=== PATIENT | female | born 1970 | race Caucasian/White ===

== ENCOUNTER 2022-05-12 09:42 | Outpatient (CLI) | payer BC, SELFPAY ==
[2022-05-12 14:01] LABS: Chloride* 103 mmol/L (96-114); Sodium* 139 mmol/L (135-149)
[2022-05-12 14:04] LABS: Blood Urea Nitrogen* 18 mg/dL (7-30); Carbon Dioxide* 25 mmol/L (20-32); Cholesterol* 227 mg/dL (90-199); Creatinine* 0.7 mg/dL (0.5-1.5); Estimated Glomerular Filt Rate 103 ml/min; Glucose* 211 mg/dL (60-115)
[2022-05-12 14:05] LABS: Calcium* 9.5 mg/dL (8.4-10.6); HDL Cholesterol* 40 mg/dL (>=50); LDL Cholesterol Calculated 129 mg/dL (<100); Triglycerides* 288 mg/dL (40-149)
--- OUTSIDE RECORDS SUMMARY | 2022-05-19 21:22 | XMS_ITS | Encounter Summary ---
:1970 Author Organization [facility] Address [address] [place] [address] Care Team Providers Name Role Phone No Ref-Primary, Physician Primary Care Provider [phone] Reason for Visit Auth/Cert Specialty Diagnoses / Procedures Referred By Contact Refer red To Contact Med Surg Diagnoses Submandibular space infection Left submandibular abcess Submandibular space infection Uu Obs Procedures COMBINED INCISION AND DRAINAGE ORAL [address] [place] [address] Phone: Fax: Referral ID Status Reason Start Date Expiration Date Visits Requ ested Visits Authorized 09/01/2017 09/01/2018 Encounter Details Date Type Department Care Team Description 08/31/2017 Anesthesia Event [facility] Laura Henderson MD [address] [facility] [address] [place] [address] PeriOp Services Yamilka Moore, LAWANDA CABANA ATTENDANT [address] [place] [address] [address] [place] [address] Anesthesia Record Procedure Summary Procedure Name Responsible Anesthesia Start Anesthesia Stop Anesthesiologist Time Time INCISION AND DRAINAGE Laura Henderson MD 08/31/171950 OF LEFT ORAL SUBMANDIBULAR ABCESS, Dental extraction x 1. (N/A Mouth) Events Date Time Event Comment 08/31/20171950 An Start 1955 An Start Data 1956 Present 1958 An Induction 1958 AN Start Iso Billing 2013 An Intubation 2016 AN Throat Pack In 2017 Anesthesia Complete 2018 MD Present 2029 AN INCISION 2044 AN Throat Pack Out 2046 AN End Iso Billing 2048 Present 2053 AN Extubation 2055 an stop data 2105 An Stop Electronically s igned by Jamee Hunt on August 31 9:06 PM Name Total midazolam 1mg/mL 2 mg fentaNYL (SUBLIMAZE) injection 150 mcg propofol (DIPRIVAN) injection 10 mg/mL vial 150 mg rocuronium 10mg/mL 40 mg dexamethasone 4mg/mL 10 mg ondansetron 2mg/mL 4 mg phenylephrine (LONI-SYNEPHRINE) injection 1 mg 100 mcg sugammadex (BRIDION) 200mg/2ml 150 mg polyethylene glycol - propylene glycol (SYSTANE) ophth almic solution 2 drop PRE OP antibiotics NOT needed for this surgical proced ure. 1 each LR 600 mL Agents Name NO HELIOX O2 N2O Air Exp Sevoflurane Exp Isoflurane Exp Desflurane Exp N2O Ins Sevoflurane Ins Isoflurane Ins Desflurane O2 Auxiliary Blood No blood administrations on file. Lines, Drains, and Airways Type Details Placement Removal Peripheral IV 08/31/17; 1600; 20 G; 08/31/17 1600 by Right; Upper forearm; Julienne Bridges RN Chlorhexidine; None Open Drain 08/31/17; 2042; Left; 08/31/172042 by Neck; 0.3 Spanish; Latex Shant El free Penrose, left RN submandibular Incision/Surgical Site 08/31/17211308/31/172113 by Gayla Phelps RN Retired Non-Surgical Easy; Intravenous; 08/31/172034 by 2055 by Airway Difficult (Initial Jamee Hunt attempt w/ CMAC 3 unable LAWANDA Foote CRNA to lift epiglottis at all to visualize vocal cords, placed CMAC D blade with grade 3 view but unable to guide bougie anterior enough, placed fiberoptic bronchoscope in conjunction with Dblade visualization successfully); 7; oral; right side of mouth; 22 cm; Equal, clear and bilateral; Fiberoptic Bronchoscope; Anesthesiologist; Laura Henderson Incision/Surgical Site 08/31/17; 2125; Left; 08/31/172125 by 2201 by Neck; 08/31/172201 Shant El, Gayla Phelps, MIGNON RN documented in this encounter Social History Tobacco Use Types Packs/Day Years Used Date Current Every Day Smoker Alcohol Use Standard Drinks/Week Comments No 0 (1 standard drink = 0.6 oz pure alcoho l) Sex Assigned at Date Recorded Not on file documented as of this encounter OR Notes Anesthesia Postprocedure Evaluation - Neftaly Cardenas MD - 08/31/2017 9:47 PM CST Patient: Rossana Goldman Procedure(s): INCISION AND DRAINAGE OF LEFT ORAL SUBMANDIBULAR ABCESS, Dental extraction x 1. - Wound Class: II-Clean Contaminated Diagnosis:Left submandibular abcess Diagnosis Additional Information: No value filed. Anesthesia Type: General, ETT Note: Anesthesia Post Evaluation Patient location during evaluation: PACU Patient participation: Able to fully participate in evaluation Level of consciousness: awake and alert Pain management: adequate Airway patency: patent Cardiovascular status: acceptable Respiratory status: acceptable Hydration status: acceptable PONV: none Last vitals: Vitals: 08/31/17 2100 08/31/17 2115 08/31/17 2130 BP: (!) 171/96 (!) 146/95 (!) 163/100 Pulse: Resp: 16 Temp: 36.8 ??C (98.3 ??F) SpO2: 98% 99% 94% Electronically Signed By: Neftaly Cardenas MD August 31, 2017 9:47 PM DYEING VAT TENDER Anesthesia Preprocedure Evaluation - Laura Henderson MD - 08/31/2017 7:46 PM CST Anesthesia Evaluation . Pt has had prior anesthetic. Type: General History of anesthetic complications reports being told during one surgery that they had trouble putting the breathing tube in, woke up with gum laceration ROS/MED HX ENT/Pulmonary: Comment: Submandibular abscess Neurologic: - neg neurologic ROS (-) seizures and CVA Cardiovascular: (+) hypertension----. : . . . :. . METS/Exercise Tolerance: Hematologic: Musculoskeletal: GI/Hepatic: - neg GI/hepatic ROS (-) liver disease Renal/Genitourinary: Comment: Previous history of kidney stones (-) renal disease Endo: Psychiatric: Infectious Disease: Malignancy: Other: Physical Exam Normal systems: dental Airway Mallampati: IV Neck ROM: full Comment: Large red submandibular swelling, poor mouth opening due to pain Dental Cardiovascular Rhythm and rate: regular and normal Pulmonary breath sounds clear to auscultation Anesthesia Plan History & Physical Review History and physical reviewed and following examination; no interval change. ASA Status: 2 . NPO Status: > 8 hours Plan for General and ETT with Intravenous induction. Maintenance will be Balanced. PONV prophylaxis: Ondansetron (or other 5HT-3) and Dexamethasone or Solumedrol Additional equipment: Videolaryngoscope and Difficult Airway Cart Postoperative Care Postoperative pain management: IV analgesics. Consents Anesthetic plan, risks, benefits and alternatives discussed with: Patient.. ANESTHESIA PREOP EVALUATION HPI: Rossana Goldman is a 47 year old female who presents for Procedure(s): INCiSION AND DRAINAGE OF LEFT ORAL SUBMANDIBULAR ABCESS - Wound Class: II-Clean Contaminated PMHx/PSHx/ROS: Past Medical History: Diagnosis Date ??? Hypertension History reviewed. No pertinent surgical history. Past Anes Hx: No personal or family h/o anesthesia problems Soc Hx: Social History Substance Use Topics ??? Smoking status: Current Every Day Smoker ??? Smokeless tobacco: Not on file ??? Alcohol use No Allergies: Allergies Allergen Reactions ??? Penicillins Hives Meds: Current Facility-Administered Medications Medication ??? [Auto Hold] sodium chloride 0.9 % bag 500mL for CT scan flush use ??? [Auto Hold] HYDROmorphone (PF) (DILAUDID) injection 0.5 mg ??? [Auto Hold] lidocaine 1 % 1 mL ??? [Auto Hold] lidocaine (LMX4) kit ??? [Auto Hold] sodium chloride (PF) 0.9% PF flush 3 mL ??? [Auto Hold] sodium chloride (PF) 0.9% PF flush 3 mL ??? [Auto Hold] ondansetron (ZOFRAN-ODT) ODT tab 4 mg Or ??? [Auto Hold] ondansetron (ZOFRAN) injection 4 mg ??? [Auto Hold] naloxone (NARCAN) injection 0.1-0.4 mg ??? [Auto Hold] HYDROcodone-acetaminophen (NORCO) 5-325 MG per tablet 1-2 tablet ??? PRE OP antibiotics NOT needed for this surgical procedure. ??? [Auto Hold] clindamycin (CLEOCIN) infusion 900 mg ??? [Auto Hold] lisinopril (PRINIVIL/ZESTRIL) tablet 10 mg NPO Status: >8 hours Labs: BMP: Recent Labs Lab Test 08/31/17 1556 NA 138 POTASSIUM 4.0 CHLORIDE 105 CO2 25 BUN 13 CR 0.66 GLC 97 AVA 8.9 CBC: Recent Labs Lab Test 08/31/17 1556 WBC 15.9* RBC 5.14 HGB 15.9* HCT 46.7 MCV 91 MCH 30.9 MCHC 34.0 RDW 12.6 PLT 228 Coags: No results for input(s): INR, PTT, FIBR in the last 30298 hours. Laura Henderson MD Staff Anesthesiologist Pager [phone] 08/31/2017 7:49 PM . DYEING VAT TENDER documented in this encounter Miscellaneous Notes Anesthesia Care Transfer Note - Jamee Hunt APRN CRNA - 08/31/2017 9:01 PM CST Patient: Rossana Goldman Procedure(s): INCiSION AND DRAINAGE OF LEFT ORAL SUBMANDIBULAR ABCESS - Wound Class: II-Clean Contaminated Diagnosis: Left submandibular abcess Diagnosis Additional Information: No value filed. Anesthesia Type: General, ETT Note: Airway :Face Mask Patient transferred to:PACU Comments: Anesthesia Care Transfer Note Patient: Rossana Goldman Transferred to: PACU Patient vital signs: stable Airway: none Monitors placed. VSS. PIV patent. 8L 02 FM. Patient awake, comfortable. Report given and care transferred to RNKtalyn Foote CRNA 08/31/2017 Handoff Report: Identifed the Patient, Identified the Reponsible Provider, Reviewed the pertinent medical history, Discussed the surgical course, Reviewed Intra-OP anesthesia mangement and issues during anesthesia, Set expectations for post-procedure period and Allowed opportunity for questions and acknowledgement of understanding Vitals: (Last set prior to Anesthesia Care Transfer) SHEILA VITALS 08/31/20172025 - 08/31/2017210008/31/2017 Pulse: 105 SpO2: 98 % Resp Rate (observed): (!) 2 Electronically Signed By: Jamee Hunt APRN CRNA August 31, 2017 9:01 PM DYEING VAT TENDER documented in this encounter Plan of Treatment Not on filedocumented as of this encounter Visit Diagnoses Not on filedocumented in this encounter Administered Medications Inactive Administered Medications - up to 3 most recent administrations Medication Order MAR Action Action Date Dose Rate Site dexamethasone (DECADRON) injection Given 08/31/2017 8:19 PM WARP DYEING VAT TENDER 10 mg Intravenous, PRN, Administer over 1 Minutes, Starting on Wed08/31/17 at 2019, Anesthesia Intra-op fentaNYL (PF) (SUBLIMAZE) injection Given 08/31/2017 9:06 PM WARP DYEING VAT TENDER 25 mcg Intravenous, PRN, moderate to severe pain, Administer over 3-5 Minutes, Starting on Wed08/31/17 at 1958, Anesthesia Intra-op Given 08/31/2017 9:02 PM WARP DYEING VAT TENDER 25 mcg Given 08/31/2017 8:16 PM WARP DYEING VAT TENDER 50 mcg lactated ringers infusion New Bag 08/31/2017 7:51 PM WARP DYEING VAT TENDER Intravenous, CONTINUOUS PRN, Anesthesia Intra-op, Starting on Wed08/31/17 at 1950, Until Wed08/31/17 at 2105 midazolam (VERSED) injection Given 08/31/2017 7:51 PM WARP DYEING VAT TENDER 2 mg Intravenous, Administer over 2 Minutes, PRN, anxiety, Starting on Wed08/31/17 at 1950, Anesthesia Intra-op ondansetron (ZOFRAN) injection Given 08/31/2017 8:24 PM WARP DYEING VAT TENDER 4 mg Intravenous, PRN, nausea, vomiting, Administer over 2-5 Minutes, Starting on Wed08/31/17 at 2023, Anesthesia Intra-op phenylephrine (LONI-SYNEPHRINE) injection 1 New Bag 08/31 8:25 PM WARP DYEING VAT TENDER 100 mcg mg 1 mg, Intravenous, CONTINUOUS PRN, Starting on Wed08/31/17 at 2024, Anesthesia Intra-op polyethylene glycol 0.4%- propylene glycol Given 08/31/2017 8:16 PM WARP DYEING VAT TENDER 2 drops 0.3% (SYSTANE ULTRA) ophthalmic solution PRN, dry eyes, Starting on Wed08/31/17 at 2016, Anesthesia Intra-op PRE OP antibiotics NOT needed for this Given 08/31/2017 7:51 PM WARP DYEING VAT TENDER 1 each surgical procedure. CONTINUOUS, Starting on Wed08/31/17 at 1930, Until Wed08/31/17 at 2058, PRE OP antibiotics NOT needed for this surgical procedure., Pre-procedure propofol (DIPRIVAN) injection 10 mg/mL v ial Given 08/31/2017 8:09 PM WARP DYEING VAT TENDER 50 mg Intravenous, PRN, Starting on Wed08/31/17 at 195, Anesthesia Intra-op Given 08/31/2017 7:59 PM WARP DYEING VAT TENDER 100 mg rocuronium (ZEMURON) injection Given 08/31/2017 7:59 PM WARP DYEING VAT TENDER 40 mg Intravenous, PRN, Starting on Wed08/31/17 at 1958, Anesthesia Intra-op sugammadex (BRIDION) injection Given 08/31/2017 8:47 PM WARP DYEING VAT TENDER 150 mg PRN, Starting on Wed08/31/17 at 2046, Anesthesia Intra-op documented in this encounter Care Teams Coremaker Supervisor Relationship Specialty Start Date End Date No Ref-Primary, Physician PCP - General 08/31/17 documented as of this encounter
--- OUTSIDE RECORDS SUMMARY | 2022-05-19 21:22 | XMS_ITS | Encounter Summary ---
:1970 Author Organization [facility] Address [address] [place] [address] Care Team Providers Name Role Phone No Ref-Primary, Physician Primary Care Provider [phone] Reason for Visit Reason Comments Facial Swelling Oral Swelling Dental Pain Auth/Cert Specialty Diagnoses / Procedures Referred By Contact Refer red To Contact Med Surg Diagnoses Submandibular space infection Left submandibular abcess Submandibular space infection Uu Obs Procedures COMBINED INCISION AND DRAINAGE ORAL [address] [place] [address] Phone: Fax: Referral ID Status Reason Start Date Expiration Date Visits Requ ested Visits Authorized 09/01/2017 09/01/2018 Encounter Details Date Type Department Care Team Description 08/31/2017 Surgery [facility] Lauren Noble DDS INCISION AND DRAINAGE OF [facility] [address] LEFT ORAL SUBMANDIBULAR [address] [facility] [address], [place] [address] [place], [place] extraction x 1. [phone] (Wo rk) Surgery Details Date/Time Status Location OR Service Patient Class Case Case Trauma Class Type Case? 08/31/17 7:00 Posted UU OR UU OR Oral-Maxill Inpatient PM 15 ofacial Panel 1 Procedure LRB Anes Op Region Wound Class Commen ts INCISION AND DRAINAGE N/A General Mouth II-Clean INC ISION AND DRAINAGE OF LEFT ORAL Contaminated OF LEFT OR AL SUBMANDIBULAR ABC[place], SUB MANDIBULAR ABC[place], Dental extraction x 1. De ntal extraction x 1. Surgeon Surgeon Role Service Panel Oswaldo Noble DDS Primary Oral-Maxillofacial 1 Carlos Du MD Resident - Assisting 1 Carlos Carrasco MD Resident - Assisting 1 documented in this encounter Social History Tobacco Use Types Packs/Day Years Used Date Current Every Day Smoker Alcohol Use Standard Drinks/Week Comments No 0 (1 standard drink = 0.6 oz pure alcoho l) Sex Assigned at Date Recorded Not on file documented as of this encounter Last Filed Vital Signs Vital Sign Reading Time Taken Comments Blood Pressure 154/95 08/31/2017 7:00 PM EXERCISE PHYSIOLOGY PROFESSOR Pulse 98 08/31/2017 2:09 PM EXERCISE PHYSIOLOGY PROFESSOR Temperature 37.2 ??C (98.9 ??F) 08/31/2017 7:39 PM EXERCISE PHYSIOLOGY PROFESSOR Respiratory Rate 20 08/31/2017 2:09 PM EXERCISE PHYSIOLOGY PROFESSOR Oxygen Saturation 93% 08/31/2017 7:00 PM EXERCISE PHYSIOLOGY PROFESSOR Inhaled Oxygen Concentration - - Weight 71.7 kg (158 lb) 08/31/2017 2:09 PM EXERCISE PHYSIOLOGY PROFESSOR Height 149.9 cm (4' 11) 08/31/2017 2:09 PM EXERCISE PHYSIOLOGY PROFESSOR Body Mass Index 31.91 08/31/2017 2:09 PM EXERCISE PHYSIOLOGY PROFESSOR documented in this encounter Discharge Summaries Carlos Du MD - 09/01/2017 10:56 AM CST [facility] Discharge Summary Rossana Goldman Age: [age] year old Date of : 1970 Date of Admission: 08/31/2017 Date of Discharge:: 09/01/2017 10:56 AM Admitting Physician: Oswaldo Noble DDS Discharge Physician: Carlos Du MD Home clinic: [facility] Oral Surgery Admission Diagnoses: Submandibular space infection [K12.2] Discharge Diagnosis: Left submandibular abcess Procedures: Procedure(s): Incision and drainage of left submandibular space infection, extraction of tooth #18 No other significant procedures performed during this admission Medications Prior to Admission: Clindamycin 300 mg PO TID Discharge Medications: Discharge Medication List as of 09/01/2017 10:36 AM START taking these medications Details traMADol (ULTRAM) 50 MG tablet Take 1 tablet (50 mg) by mouth every 6 hours as needed for pain maximum 4 tablets per day, Disp-20 tablet, R-0, Local Print clindamycin (CLEOCIN) 300 MG capsule Take 1 capsule (300 mg) by mouth 4 times daily for 7 days, Disp-28 capsule, R-0, E-Prescribe chlorhexidine (PERIDEX) 0.12 % solution Swish and spit 15 mLs in mouth 2 times daily, Disp-473 mL, R-1, E-Prescribe Consultations: Consultation during this admission received from internal medicine. They recommended patient follow-up with her PCP for management of hypertension urgency. Brief History of Illness: Reason for admission requiring a surgical or invasive procedure: Left submandibular space infection associated with carious tooth #18 The patient underwent the following procedure(s): Incision and drainage of left submandibular space infection and extraction of tooth #18 There were no immediate complications during this procedure. Please refer to the full operative summary for details. Hospital Course: The patient's hospital course was unremarkable. She recovered as anticipated and experienced no post-operative complications. She was discharged on POD#1. Discharge Instructions and Follow-Up: Discharge diet: Soft mechanical Discharge activity: Activity as tolerated Discharge follow-up: Follow up with Dr. Noble in 6 days Wound care: Daily dressing changes Discharge Disposition: Discharged to home CISE PHYSIOLOGY PROFESSOR Associated attestation - Oswaldo Noble DDS - 09/09/2017 8:27 AM EXERCISE PHYSIOLOGY PROFESSOR I agree with the discharge and plan of care at home as specified above. Please see note for full details. Oswaldo Noble DDS, MD Staff, inside sales director documented in this encounter Discharge Instructions AttachmentsThe following attachments cannot be sent through Care Everywhere. DIET: SOFT, DISCHARGE INSTRUCTIONS (YORUBA)documented in this encounter Medications at Time of Discharge Medication Sig Dispensed Refills Start Date End Date chlorhexidine (PERIDEX) Swish and spit 15 473 mL 1 09/01 0.12 % mLs in mouth 2 solutionIndications: times daily Submandibular space infection clindamycin (CLEOCIN) 300 Take 1 capsule (300 28 capsule 0 1 11/01/2016 09/08/2017 MG capsuleIndications: mg) by mouth 4 Submandibular space times daily for 7 infection days traMADol (ULTRAM) 50 MG Take 1 tablet (50 20 tablet 0 09/0109/06/2017 tabletIndications: mg) by mouth every Submandibular space 6 hours as needed infection for pain maximum 4 tablets per day documented as of this encounter Progress Notes Lashell Villegas RN - 09/01/2017 10:42 AM CST BP 142/90 Pulse 88 Temp 97.9 ??F (36.6 ??C) (Oral) Resp 16 Ht 1.499 m (4' 11) Wt 71.7 kg (158 lb) SpO2 95% BMI 31.91 kg/m2 Patient's condition and vital Signs are stable/WNL. Discharge instructions reviewed with patient and questions answered. Patient verbalizes understanding. IV removed. Pain under control. Patient is tolerating soft diet and denies any N/V. Patient to be discharged to home via self. Patient has all belongings. Will stop at pharmacy on 3rd floor to draft roller picker prescriptions CISE PHYSIOLOGY PROFESSOR Sheyla Price MD - 09/01/2017 8:35 AM CST Internal Medicine Consult Note Date of Service: 09/01/2017 Patient: Rossana Goldman Admission Date: 08/31/2017 Hospital Day # 0 Assessment & Plan: Rossana Goldman is a 47 year old female admitted on 08/31/2017 to OMFS service for procedural management of tooth abscess. 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 ?? # Tooth abscess: Presented with one week h/o oral swelling, worsening despite 4 days of clindamycin.CT scan demonstrated abscess. AUTO GLASS WORKER admission had difficulty swallowing secondary to pain, but no trouble with secretion management and no airway compromise. --OMFS managing as primary team. --Agree with transition to PO antibiotics today, duration of treatment per OMFS team ?? # H/o hypertension with hypertensive urgency: Hypertensive urgency resolved. Pt noted she was previously started on Norvasc at PCP clinic but stopped this after losing health insurance 5 months ago. Blood pressures improved without antihypertensive medication (Pt did not take ordered lisinopril overnight or this AM), suspect improved pain control assisted with BP improvement. Pt notes significant difficulty with cough with lisinopril in past. She has needed antihypertensive medication AUTO GLASS WORKER to controlblood pressures. --Discontinue lisinopril given h/o cough with previous use (ordered for you) --Pt very resistant to starting any antihypertensive medication on discharge, repeatedly stating to this provider I'll take care of that later. Blood pressures have improved significantly without antihypertensive medications (likely with pain control) and blood pressure is at an acceptable reading this AM. If patient refusing any antihypertensive medication on discharge, recommend patient have close outpatient follow up outpatient with recheck of blood pressure in 7-10 days. If patient willing to discharge on antihypertensive medication, would consider starting low dose of losartan at 25mg PO daily as she has tolerated this medication previously per her report (no records available), again with close follow up outpatient with recheck of blood pressure in 7-10 days. --talked with SW today who will meet with patient prior to discharge to see if assistance available to help with cost of discharge meds and to identify low cost/no cost outpatient clinics near patient's home. Pt wishes to have a financial counselor call her after discharge to assist with obtaining health insurance coverage, this has been requested. Appreciate SW assistance. ?? FEN/GI/: diet per primary team VTE prophylaxis: per primary team Code status: Full code Disposition: per primary team, plan to discharge patient to prior living arrangement today. Patient care plan discussed beside with patient, and with primary team via phone. Sheyla Price MD Internal Medicine Hospitalist & Staff Physician [facility] Pager: [phone] Team: Cynthia Lee 9 Page Cross Cover between 5pm-8am: pager [phone] (Bruce), if no response then page job code [phone]. Subjective & Interval Hx: Pt feeling better this AM, very anxious to depart the hospital. Denies pain currently, denies difficulty swallowing or breathing. No nausea, no SOB. Last 24 hr care team notes reviewed. ROS: 4 point ROS including Respiratory, CV, GI and , other than that noted in the HPI, is negative. Medications: Reviewed in EPIC, please see EPIC for complete list. Physical Exam: Blood pressure 142/90, pulse 88, temperature 97.9 ??F (36.6 ??C), temperature source Oral, resp. rate 16, height 1.499 m (4' 11), weight 71.7 kg (158 lb), SpO2 95 %. General: NAD, sitting up in bed, cooperative with interview and exm HEENT: normocephalic, bandaging under chin in place and dry/intact, minimal redness on skin overlying L side of face Chest/Resp: good air movement bilaterally, no wheezing Heart/CV: RRR Abdomen/GI: nondistended Extremities/MSK: no LE edema Neuro: AOx3, no tremor Psych: appears mildly anxious Lines/Tubes: Peripheral IV 08/31/17 Right Upper forearm (Active) Site Assessment WDL 09/01/2017 8:09 AM Line Status Saline locked 09/01/2017 8:09 AM Phlebitis Scale 0-->no symptoms 09/01/2017 8:09 AM Infiltration Scale 0 09/01/2017 8:09 AM Infiltration Site Treatment Method None 08/31/2017 7:22 PM Extravasation? No 09/01/2017 8:09 AM Number of days:1 Labs: Laboratory data reviewed. Imaging/Studies: Imaging/Studies findings reviewed. CISE PHYSIOLOGY PROFESSOR Carlos Du MD - 09/01/2017 7:55 AM CST OMS Progress Note 09/01/2017 Rossana Goldman : 1970 Sex: female ASSESSMENT: 47 year old female who presents POD#1 s/p incision and drainage of left submandibular space infection. Patient is progressing well and is suitable for discharge from OMS perspective. PLAN/RECOMMENDATIONS: - Discharge to home. - Rx for tramadol 50 mg PO QID in patient's chart. Patient said she preferred tramadol to norco. - Peridex mouth rinse BID. - Clindamycin 300 mg PO QID for 7 days. - Follow-up in oral surgery clinic at 11:00 AM on 09/07. - Appreciate medicine recommendations regarding outpatient management of patient's hypertension. Please do not hesitate to contact me with questions. Patient's findings, assessment and plan discussed with chief resident, Dr. Cas Alcala, who will discuss with staff surgeon, Dr. Noble. Carlos Du Pager: [phone] Oral & Maxillofacial Surgery Resident SUBJECTIVE Interval History Patient did well overnight, no acute events. The patient denies uncontrolled pain, nausea/vomitting,fevers/chills, numbness/tingling, abdominal discomfort, trouble breathing, or difficulty / pain on swallowing . The patient reports limited ambulation, voiding urine, and has been tolerating PO medications. History of Present Illness: Rossana Goldman is a 47 year old female who presents POD#1 s/p incision and drainage of left submandibular space infection and extraction of tooth #18 in the OR. Medications: Current Outpatient Prescriptions Medication Sig Dispense Refill ??? traMADol (ULTRAM) 50 MG tablet Take 1 tablet (50 mg) by mouth every 6 hours as needed for pain maximum 4 tablets per day 20 tablet 0 Allergies: Allergies Allergen Reactions ??? Penicillins Hives OBJECTIVE BP 142/90 Pulse 88 Temp 97.9 ??F (36.6 ??C) (Oral) Resp 16 Ht 1.499 m (4' 11) Wt 71.7 kg (158 lb) SpO2 95% BMI 31.91 kg/m2 Physical Exam: Constitutional: Resting comfortably in bed. Eating breakfast. HEENT: There are not signs of external trauma, Ears: External ears are intact Eyes: Pupils equal round and reactive to light, extraocular eye movement intact, no subconjunctivalhemorrhage Nose: External alae are normal, there is no hemorrhage, septum midline, no septal hematoma, no crepitus/deviation of the nasal dorsum Mouth: Extraction site of #18 hemostatic. The buccal vestibules are intact. The dentition is poor. Occlusion is reproducible. Maxilla nonmobile on exam, bilateral compression and flexion of mandible does not elicit painful response or movement. No blood in saliva, no loose or traumatically missing teeth. No intraoral lacerations. Floor of mouth soft nontender, nondistended. Tongue is midline, not raised. Oral hygiene is poor, Maximum interincisal opening is 35 mm. TMJ non-tender bilaterally. Neck: Left submandibular space distension improved since yesterday, softer. Cardiovascular: Regular rate and rhythm, normal S1/S2 Pulmonary: Clear to auscultation bilaterally Neurologic: AOx3, cranial nerves grossly intact, EOMI, PERRL, facial sensation/movement symmetric (V2/V3), hearing intact to finger rub bilaterally, uvula midline, tongue midline on protrusion. Skin: Erythema over left submandibular space infection LABS: Lab Results Component Value Date WBC 19.9 09/01/2017 Lab Results Component Value Date RBC 4.80 09/01/2017 Lab Results Component Value Date HGB 14.9 09/01/2017 Lab Results Component Value Date HCT 43.1 09/01/2017 No components found for: MCT Lab Results Component Value Date MCV 90 09/01/2017 Lab Results Component Value Date MCH 31.0 09/01/2017 Lab Results Component Value Date MCHC 34.6 09/01/2017 Lab Results Component Value Date RDW 12.6 09/01/2017 Lab Results Component Value Date PLT 243 09/01/2017 I/O24 Intake/Output Summary (Last 24 hours) at 09/01/17 0755 Last data filed at 08/31/17 2045 Gross per 24 hour Intake 600 ml Output 10 ml Net 590 ml CISE PHYSIOLOGY PROFESSOR Gayla Phelps RN - 08/31/2017 9:32 PM CST Pt was a very difficult intubation. Anesthesia filled out a form for patient to keep to show providers before ever having to be intubated again, so they know what to expect. Form is in chart labelled patient copy. CISE PHYSIOLOGY PROFESSOR documented in this encounter H&P Notes Carlos Du MD - 08/31/2017 5:39 PM CST History and Physical OMS, PGY-1 Rossana Goldman : 1970 Sex: female ASSESSMENT: 47 year old female with history of tobacco use and JESUS who presents with left submandibular space abscess associated with carious tooth #18. PLAN/RECOMMENDATIONS: - Plan to take patient to OR tonight for incision and drainage of left submandibular abscess. - Keep patient NPO. - Admit for IV antibiotics. Clindamycin 900 mg q8h. - Consult medicine regarding medical management. Patient's BP was 202/117. Please do not hesitate to contact me with questions. Patient's findings, assessment and plan discussed with chief resident, Dr. Cas Alcala, who will discuss with staff surgeon, Dr. Noble. Carlos Du Pager: [phone] Oral & Maxillofacial Surgery Resident SUBJECTIVE History of Present Illness: Rossana Goldman is a 47 year old female who presents with left facial swelling of 4 days duration. She initially presented to an outside ED on 08/27 complaining of facial swelling. She was prescribed clindamycin 300 mg TID. [facility] No difficulty breathing or swallowing. She last ate at 9:00 this morning. Medical/Surgical History : MHx: JESUS (told she needs CPAP, but does not use it) Cholecystectomy, kidney stones, foot surgeries twice, tubal ligation, TMJ proplast insertion and removal Problem List: There is no problem list on file for this patient. Medications: Current Facility-Administered Medications Medication ??? clindamycin (CLEOCIN) infusion 600 mg ??? sodium chloride 0.9 % bag 500mL for CT scan flush use No current outpatient prescriptions on file. Allergies: Allergies Allergen Reactions ??? Penicillins Hives Review of Systems: A 10-point review of systems was performed and found to be negative except for as noted in HPI. OBJECTIVE BP (!) 160/101 Pulse 98 Temp 98.2 ??F (36.8 ??C) (Oral) Resp 20 Ht 1.499 m (4' 11) Wt 71.7 kg (158 lb) SpO2 100% BMI 31.91 kg/m2 Physical Exam: Constitutional: Resting comfortably in bed, no acute distress. HEENT: There are not signs of external trauma, Ears: External ears are intact, tympanic membranes intact bilaterally Eyes: Pupils equal round and reactive to light, extraocular eye movement intact, no subconjunctivalhemorrhage, Nose: External alae are normal, there is no hemorrhage, septum midline, no septal hematoma, no crepitus/deviation of the nasal dorsum Mouth: Multiple carious teeth. Tooth #18 tender to palpation. The buccal vestibules are intact. Thedentition is poor. Occlusion is reproducible. Maxilla nonmobile on exam, bilateral compression and flexion of mandible does not elicit painful response or movement. No blood in saliva, no loose or traumatically missing teeth. No intraoral lacerations. Floor of mouth soft nontender, nondistended. Tongue is midline, not raised. Oral hygiene is poor, Maximum interincisal opening is 30 mm, which patient says is how far she can normally open Neck: Left submandibular space distension, about 2-3 cm in diameter, erythematous, firm, localized. Cardiovascular: RRR, normal S1/S2 Pulmonary: CTAB Musculoskeletal: There are not signs of external trauma, patient moves 4 extremities to request Neurologic: AOx3, cranial nerves grossly intact, EOMI, PERRL, facial sensation/movement symmetric (V2/V3), hearing intact to finger rub bilaterally, uvula midline, tongue midline on protrusion. Skin: No facial lesions LABS: Lab Results Component Value Date WBC 15.9 08/31/2017 Lab Results Component Value Date RBC 5.14 08/31/2017 Lab Results Component Value Date HGB 15.9 08/31/2017 Lab Results Component Value Date HCT 46.7 08/31/2017 No components found for: MCT Lab Results Component Value Date MCV 91 08/31/2017 Lab Results Component Value Date MCH 30.9 08/31/2017 Lab Results Component Value Date MCHC 34.0 08/31/2017 Lab Results Component Value Date RDW 12.6 08/31/2017 Lab Results Component Value Date PLT 228 08/31/2017 RADIOLOGY: CT with contrast: Left submandibular space rim-enhancing fluid collection consistent with abscess. CISE PHYSIOLOGY PROFESSOR Associated attestation - Oswaldo Noble DDS - 09/04/2017 12:35 PM EXERCISE PHYSIOLOGY PROFESSOR I have evaluated and examined the patient, I have reviewed the findings and radiographs and I have directed the plan of care. Please see above note for full details. Oswaldo Noble DDS, MD Clinical Roofing Supervisor, inside sales director documented in this encounter Consult Notes Porfirio Guzmán APRN TERRITORY SALES REPRESENTATIVE - 08/31/2017 6:11 PM CST [facility] Internal Medicine Consult - [facility] Service Date of Admission: 08/31/2017 Consult Requested by: OMFS team Reason for Consult: Hypertension Assessment & Plan Rossana Goldman is a 47 year old female admitted on 08/31/2017. She has a history of hypertensionand is admitted for a tooth abscess. 1) Tooth abscess - Presented to our ED with one week of oral swelling which has worsened despite [address] scan shows ab abscess by the Currently has difficulty swallowing secondary to pain but no trouble with secretions and no airway compromise. - OMFS managing as primary team 2) Hypertension with hypertensive urgency - Previously on Norvasc but reports she stopped taking this after she lost insurance five months ago. Previously developed dry cough with lisinopril and could not tolerate beta blockers. She is interested in speaking to social work about seeing if she qualifies for any insurance options. - Consult social work (ordered) - Patient currently unable to afford Norvasc, and has not been able to tolerate most of the low-costgeneric options available (beta blockers, DAVID-I). She is willing to try lisinopril again while waiting for insurance, so I will restart this tonight. DVT Prophylaxis: Defer to primary service Porfirio uGzmán NP Internal Medicine Staff Hospitalist Service [facility] Pager: [phone] After 5 PM, smiley lee team cross cover at [phone]. If no response, page job code [phone]. Chief Complaint Mouth pain History is obtained from the patient History of Present Illness Rossana Goldman is a 47 year old female admitted on 08/31/2017. She has a history of hypertensionand is admitted for a tooth abscess. The patient reports she has been ill for one week with tooth pain and chills. She was started on clindamycin 4 days ago but it has not helped with her symptoms. She has also been taking ibuprofen for pain without relief. She has been eating little secondary to pain, but denies any difficulty swallowing secretions or with her breathing. She has no other complaints. She notes she has a history of hypertension and was previously on Norvasc but could not afford this when she lost insurance in March. Of note she also reports a strong desire to leave the hospital as soon as possible as she has a disabled dependent at home. Review of Systems The 10 point Review of Systems is negative other than noted in the HPI or here. Past Medical History I have reviewed this patient's medical history and updated it with pertinent information if needed. Past Medical History: Diagnosis Date ??? Hypertension Past Surgical History I have reviewed this patient's surgical history and updated it with pertinent information if needed. No past surgical history on file. Social History Social History Substance Use Topics ??? Smoking status: Current Every Day Smoker ??? Smokeless tobacco: Not on file ??? Alcohol use No Family History No pertinent family history Medications Only on clinda prescribed 4 days ago Allergies Allergies Allergen Reactions ??? Penicillins Hives Physical Exam Vital Signs: Temp: 98.2 ??F (36.8 ??C) Temp src: Oral BP: (!) 161/100 Pulse: 98 Resp: 20 SpO2: 94 % O2 Device: None (Room air) Weight: 158 lbs 0 oz Physical Exam Constitutional: Well nourished, well developed, uncomfortable appearing Head: Normocephalic and atraumatic. Left jaw swollen. Neck: No adenopathy, no bony tenderness Cardiovascular: Regular rate and rhythm without murmurs or gallops Pulmonary/Chest: Clear to auscultation bilaterally, with no wheezes or retractions. No respiratory distress. GI: Soft with good bowel sounds. Non-tender, non-distended, with no guarding, no rebound, no peritoneal signs. Musculoskeletal: No edema or clubbing Skin: Skin is warm and dry. No rash noted. Neurological: Alert and oriented to person, place, and time. Nonfocal exam Psychiatric: Normal mood and affect. Data Data reviewed today: I reviewed all medications, new labs and imaging results over the last 24 hours. I personally reviewed her CT scan today. CISE PHYSIOLOGY PROFESSOR documented in this encounter Nursing Notes Ria Kong RN - 08/31/2017 6:[address] Du (oral surgery resident) that patient needs pre op orders entered. CISE PHYSIOLOGY PROFESSOR documented in this encounter ED Notes John Paul Singh MD - 08/31/2017 3:08 PM CST Bed: IN03 Expected date: Expected time: Means of arrival: Comments: ROSSANA GOLDMAN bilateral, submandibular and sublingual abscesses, Dr. erica dash - sent here for further evaluation, CISE PHYSIOLOGY PROFESSOR Brayan Negro RN - 08/31/2017 2:11 PM CST Triage Assessment & Note: BP (!) 202/117 Pulse 98 Temp 98.2 ??F (36.8 ??C) (Oral) Resp 20 Ht 1.499 m (4' 11) Wt 71.7 kg (158 lb) SpO2 100% BMI 31.91 kg/m2 Patient presents with: c/o dental pain starting last wed, now she has swelling under her jaw with redness and pain. PT was referred here by oral surgeon. Home Treatments/Remedies: Oral antibiotics Febrile / Afebrile? afebrile Duration of C/o: 1 week Brayan Negro August 31, 2017 CISE PHYSIOLOGY PROFESSOR John Paul Singh MD - 08/31/2017 2:05 PM CST Images from the original note were not included. History Chief Complaint Patient presents with ??? Facial Swelling ??? Oral Swelling ??? Dental Pain HPI Rossana Goldman is a 47 year old female who presents to the Emergency Department for evaluation of an oral swelling. The patient reports she developed submandibular swelling last week that she believes was associated with a abscessed tooth. She states she when to an ED in [place] on Wednesday (4 days ago) and was prescribed Clindamycin 300 mg TID. The swelling did not improve so she presented to anoral surgeon today. The oral surgeon referred her to our ED for evaluation. She states the swelling has caused her difficulty swallowing. She says she has noticed mild amounts of drainage from the swelling by tasting the fluid. She denies any acute fever, chills, diaphoresis, nausea, or vomiting. Past Medical History: Diagnosis Date ??? Hypertension No past surgical history on file. No family history on file. Social History Substance Use Topics ??? Smoking status: Current Every Day Smoker ??? Smokeless tobacco: Not on file ??? Alcohol use No Current Facility-Administered Medications Medication ??? sodium chloride 0.9 % bag 500mL for CT scan flush use ??? HYDROmorphone (PF) (DILAUDID) injection 0.5 mg ??? lidocaine 1 % 1 mL ??? lidocaine (LMX4) kit ??? sodium chloride (PF) 0.9% PF flush 3 mL ??? sodium chloride (PF) 0.9% PF flush 3 mL ??? ondansetron (ZOFRAN-ODT) ODT tab 4 mg Or ??? ondansetron (ZOFRAN) injection 4 mg ??? naloxone (NARCAN) injection 0.1-0.4 mg ??? HYDROcodone-acetaminophen (NORCO) 5-325 MG per tablet 1-2 tablet ??? [START ON 09/01/2017] clindamycin (CLEOCIN) infusion 900 mg ??? lisinopril (PRINIVIL/ZESTRIL) tablet 10 mg No current outpatient prescriptions on file. Allergies Allergen Reactions ??? Penicillins Hives I have reviewed the Medications, Allergies, Past Medical and Surgical History, and Social History inthe [employer] system. Review of Systems Constitutional: Negative for chills, diaphoresis and fever. HENT: Positive for facial swelling (submandibular) and trouble swallowing. Negative for congestion. Eyes: Negative for redness. Respiratory: Negative for shortness of breath. Cardiovascular: Negative for chest pain. Gastrointestinal: Negative for abdominal pain, nausea and vomiting. Genitourinary: Negative for difficulty urinating. Musculoskeletal: Negative for arthralgias and neck stiffness. Skin: Negative for color change. Neurological: Negative for headaches. Psychiatric/Behavioral: Negative for confusion. All other systems reviewed and are negative. Physical Exam BP: (!) 202/117 Pulse: 98 Temp: 98.2 ??F (36.8 ??C) Resp: 20 Height: 149.9 cm (4' 11) Weight: 71.7 kg (158 lb) SpO2: 100 % Physical Exam Constitutional: No distress. HENT: Head: Atraumatic. Mouth/Throat: Oropharynx is clear and moist. No oropharyngeal exudate. Eyes: Pupils are equal, round, and reactive to light. No scleral icterus. Cardiovascular: Normal heart sounds and intact distal pulses. Pulmonary/Chest: Breath sounds normal. No respiratory distress. Abdominal: Soft. Bowel sounds are normal. There is no tenderness. Musculoskeletal: She exhibits no edema or tenderness. Skin: Skin is warm. No rash noted. She is not diaphoretic. ED Course ED Course Procedures Results for orders placed or performed during the hospital encounter of 08/31/[address] w contrast Result Value Ref Range Radiologist flags Abscess (Urgent) Narrative Abscess tracking from the posterior most left mandibular molar along the floor of the mouth. No definite bony erosions or periapical abscesses to definitely suggest odontogenic source, though given its close approximation it is still favored. [Urgent Result: Abscess] Finding was identified on 08/31/2017 5:[address] Singh was contacted by Dr. Krause at 08/31/2017 5:21 PM and verbalized understanding of the urgent finding. XR Orthopantomogram Teeth Full Mouth Narrative Exam: XR ORTHOPANTOMOGRAM TEETH FULL MOUTH, 08/31/2017 6:42 PM Indication: nathanael's angina, presumed odontogenic source; Comparison: None Findings: Orthopantogram, PA, oblique and lateral views of the mandible. Numerous dental fillings noted. Poor visualization of the incisors due to motion artifact. No periapical lucencies noted. No definite dental caries. No evidence of mandibular fracture. Impression Impression: No appreciable millicuries are apical lucencies. CBC with platelets differential Result Value Ref Range WBC 15.9 (H) 4.0 - 11.0 10e9/L RBC Count 5.14 3.8 - 5.2 10e12/L Hemoglobin 15.9 (H) 11.7 - 15.7 g/dL Hematocrit 46.7 35.0 - 47.0 % MCV 91 78 - 100 fl MCH 30.9 26.5 - 33.0 pg MCHC 34.0 31.5 - 36.5 g/dL RDW 12.6 10.0 - 15.0 % Platelet Count 228 150 - 450 10e9/L Diff Method Automated Method % Neutrophils 82.3 % % Lymphocytes 12.2 % % Monocytes 4.8 % % Eosinophils 0.3 % % Basophils 0.1 % % Immature Granulocytes 0.3 % Nucleated RBCs 0 0 /100 Absolute Neutrophil 13.1 (H) 1.6 - 8.3 10e9/L Absolute Lymphocytes 1.9 0.8 - 5.3 10e9/L Absolute Monocytes 0.8 0.0 - 1.3 10e9/L Absolute Eosinophils 0.1 0.0 - 0.7 10e9/L Absolute Basophils 0.0 0.0 - 0.2 10e9/L Abs Immature Granulocytes 0.1 0 - 0.4 10e9/L Absolute Nucleated RBC 0.0 Comprehensive metabolic panel Result Value Ref Range Sodium 138 133 - 144 mmol/L Potassium 4.0 3.4 - 5.3 mmol/L Chloride 105 94 - 109 mmol/L Carbon Dioxide 25 20 - 32 mmol/L Anion Gap 8 3 - 14 mmol/L Glucose 97 70 - 99 mg/dL Urea Nitrogen 13 7 - 30 mg/dL Creatinine 0.66 0.52 - 1.04 mg/dL GFR Estimate >90 >60 mL/min/1.7m2 GFR Estimate If Black >90 >60 mL/min/1.7m2 Calcium 8.9 8.5 - 10.1 mg/dL Bilirubin Total 0.3 0.2 - 1.3 mg/dL Albumin 3.3 (L) 3.4 - 5.0 g/dL Protein Total 7.3 6.8 - 8.8 g/dL Alkaline Phosphatase 84 40 - 150 U/L ALT 16 0 - 50 U/L AST 7 0 - 45 U/L Medications sodium chloride 0.9 % bag 500mL for CT scan flush use (60 mLs Intravenous Given 08/31/170) HYDROmorphone (PF) (DILAUDID) injection 0.5 mg (0.5 mg Intravenous Given 08/31/17 1837) lidocaine 1 % 1 mL (not administered) lidocaine (LMX4) kit (not administered) sodium chloride (PF) 0.9% PF flush 3 mL (not administered) sodium chloride (PF) 0.9% PF flush 3 mL (not administered) ondansetron (ZOFRAN-ODT) ODT tab 4 mg (not administered) Or ondansetron (ZOFRAN) injection 4 mg (not administered) naloxone (NARCAN) injection 0.1-0.4 mg (not administered) HYDROcodone-acetaminophen (NORCO) 5-325 MG per tablet 1-2 tablet (not administered) clindamycin (CLEOCIN) infusion 900 mg (not administered) lisinopril (PRINIVIL/ZESTRIL) tablet 10 mg (not administered) iopamidol (ISOVUE-370) solution 100 mL (100 mLs Intravenous Given 08/31/17 1650) Labs Ordered and Resulted from Time of ED Arrival Up to the Time of Departure from the ED CBC WITH PLATELETS DIFFERENTIAL - Abnormal; Notable for the following: Result Value WBC 15.9 (*) Hemoglobin 15.9 (*) Absolute Neutrophil 13.1 (*) All other components within normal limits COMPREHENSIVE METABOLIC PANEL - Abnormal; Notable for the following: Albumin 3.3 (*) All other components within normal limits ROUTINE UA WITH MICROSCOPIC REFLEX TO CULTURE IP ASSIGN PROVIDER TEAM TO TREATMENT TEAM OBSERVATION GOALS DISCHARGE PLANNING MEASURE HEIGHT AND WEIGHT VITAL SIGNS ASSESS NOTIFY PHYSICIAN WOUND CARE PERIPHERAL IV CATHETER ACTIVITY Assessments & Plan (with Medical Decision Making) 47-year-old female presents for evaluation of progressive submandibular swelling over the past 4 days. Differential included Nathanael's angina, odontogenic infection, sialoadenitis, abscess. Laboratorieswere obtained revealing a elevated white blood count consistent with infection/inflammation. Comprehensive metabolic panel was normal. Panorex was obtained revealing no definite dental caries. CT scan revealed abscess in the floor the mouth. The case was discussed with both dental and oral surgery were and see the patient. Patient received clindamycin IV and pain medication in the form of Dilaudid. The plan was for the patient to go to the operating room for definitive management. I have reviewed the nursing notes. I have reviewed the findings, diagnosis, plan and need for follow up with the patient. New Prescriptions No medications on file Final diagnoses: Submandibular space infection ICyrus, am serving as a trained faculty i on call medical assistant to document services personally performedby Peter Singh MD, based on the provider's statements to me. Peter Esquivel MD, was physically present and have reviewed and verified the accuracy of this note documented by Cyrus Chauhan. 08/31/2017 [facility] EMERGENCY DEPARTMENT John Paul Singh MD 08/31/17 [id number] CISE PHYSIOLOGY PROFESSOR documented in this encounter Miscellaneous Notes Provider Notification - Lashell Villegas RN - 09/01/2017 10:25 AM EXERCISE PHYSIOLOGY PROFESSOR Paged OMS team again for d/c orders. Patient very antsy and ready to go. States ride will be here in20 min. CISE PHYSIOLOGY PROFESSOR Provider Notification - Lashell Villegas RN - 09/01/2017 9:36 AM EXERCISE PHYSIOLOGY PROFESSOR Paged OMS team for d/c orders. Pt requesting to go CISE PHYSIOLOGY PROFESSOR Plan of Care - Lashell Villegas RN - 09/01/2017 8:00 AM CST Problem: Patient Care Overview Goal: Discharge Needs Assessment Outpatient/Observation goals to be met before discharge home: BP 142/90 Pulse 88 Temp 97.9 ??F (36.6 ??C) (Oral) Resp 16 Ht 1.499 m (4' 11) Wt 71.7 kg (158 lb) SpO2 95% BMI 31.91 kg/m2 - Tolerating oral antibiotics or has plans for home infusion set up.-Plan for discharge on oral antibiotic. Receiving IV on unit - Vital signs normal or at patient baseline-YES - Adequate pain control on oral analgesia-YES - Infection is improving-Ongoing - Color, warmth, movement, sensation of affected area or limb is intact or at baseline-YES - Return to baseline functional status-YES - Safe disposition plan has been identified-YES - Nurse to notify provider when observation goals have been met and patient is ready for discharge-Team paged for discharge orders CISE PHYSIOLOGY PROFESSOR Plan of Care - Paloma Oreilly RN - 09/01/2017 4:00 AM CST Problem: Patient Care Overview Goal: Plan of Care/Patient Progress Review Outpatient/Observation goals to be met before discharge home: List all goals to be met before discharge home: - Tolerating oral antibiotics or has plans for home infusion set up - NO receiving PO antibiotics. - Vital signs normal or at patient baseline - YES - Adequate pain control on oral analgesia - YES - Infection is improving - NA - Color, warmth, movement, sensation of affected area or limb is intact or at baseline - NA - Return to baseline functional status - YES - Safe disposition plan has been identified - YES - Nurse to notify provider when observation goals have been met and patient is ready for discharge. ? CISE PHYSIOLOGY PROFESSOR Plan of Care - Paloma Oreilly RN - 09/01/2017 12:00 AM CST Problem: Patient Care Overview Goal: Plan of Care/Patient Progress Review Outpatient/Observation goals to be met before discharge home: List all goals to be met before discharge home: - Tolerating oral antibiotics or has plans for home infusion set up - NO receiving PO antibiotics. - Vital signs normal or at patient baseline - YES - Adequate pain control on oral analgesia - YES - Infection is improving - NA - Color, warmth, movement, sensation of affected area or limb is intact or at baseline - NA - Return to baseline functional status - YES - Safe disposition plan has been identified - YES - Nurse to notify provider when observation goals have been met and patient is ready for discharge. 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 10 cc FLUID REPLACEMENT: 600 mL of Crystalloid. URINE OUTPUT: None LOCAL ANESTHESIA: 10 mL total of 0.25% Marcaine with 1:200,000 epinephrine. SPECIMENS: None. COMPLICATIONS: None. DRAINS: none INDICATIONS FOR PROCEDURE: Ms. Rossana Garcia is a 47 yo woman who presented to the [facility] ED with complaint of difficulty swallowing and swelling of the floor of her mouth for approximately 1 week. Shereports that she started antibiotics a few days ago, but the swelling continued to worsen. She then presented to a oral surgeon in [place] who stated she should present to the emergency at [facility] for evaluation and likely drainage of an infection. A CT scan was obtained with demonstrated periapical abscess tooth #18 with related abscess rim enhancing fluid collection medial to left mandible. There wasnoted deviation of the airway. DESCRIPTION OF PROCEDURE: The patient was met preoperatively and the treatment plan was confirmed with the patient.?? She was brought back to operating room 15 by the Anesthesia Service. She transferred herself to the table and was induced to general anesthesia.There was difficulty passing the endotracheal tube initially due to significant redundant tissues. Patient was easily masked and an oral tubewas successfully passed utilizing a fiber optic scope. Following induction of anesthesia, an oral endotracheal tube was placed and taped by the Anesthesia Service. The patient's arms were tucked and padded, and the oral cavity was prepped. A throat pack was placed. Local anesthesia was used intraorally via local infiltration and chlorhexidine rinse was used in the oral cavity. The oral cavity was suctioned. The face was painted in usual sterile fashion.?? Surgeons stepped out to scrub and returned to don sterile gown and gloves. At that time, the surgical site was squared off and a split sheet drape was placed. First a 18 gauge needle and syringe was used to attempt to aspiration the fluid collection, minimal to no purulent drainage was obtained. A #15 blade was then used to create an incision parallel to themandible 2 finger breaths inferior to the inferior border of the mandible. A Glo hemostat was usedto bluntly dissect up to the inferior border of the mandible then was pass medial to the mandible. The lingual portion of the mandible was swept with Glo hemostat. Serosanguinous drainage was observed. Attention then turned to #18. FTMP flap was elevated.?? #18 were elevated and delivered with forceps. Site was irrigated, curetted.??Sockets curetted and irrigated sterile saline.? There incision and drainage site was then irrigated with copious sterile saline. A venus drainage was passed medial to the mandible and secured with a 2-0 Nylon suture. The patient's oral cavity was suctioned. The throat pack was removed.?? The patient was turned over to the Anesthesia Service and was awakened in the OR and transferred stable to the PACU. Dr Noble was present for the entirety of the procedure. Complications: None. Cas Alcala DDS CISE PHYSIOLOGY PROFESSOR Associated attestation - Oswaldo Noble DDS - 09/04/2017 12:35 PM EXERCISE PHYSIOLOGY PROFESSOR I was present and directed the critical portions of the procedure. Please see the operative report for full details. Oswaldo Noble DDS, MD Staff, inside sales director documented in this encounter Plan of Treatment Not on filedocumented as of this encounter Procedures Procedure Name Priority Date/Time Associated Diagnosis Comme nts CBC WITH PLATELETS Routine 09/01/2017 7:01 Submandibular space Results for this AM EXERCISE PHYSIOLOGY PROFESSOR infection procedure are i n the results section. INCISION AND DRAINAGE, 08/31/2017 7:34 Left submandibu lar MOUTH PM EXERCISE PHYSIOLOGY PROFESSOR abcess XR ORTHOPANTOMOGRAM STAT 08/31/2017 6:42 Resul ts for this TEETH FULL MOUTH PM EXERCISE PHYSIOLOGY PROFESSOR procedure a re in the results section. ROUTINE UA WITH STAT 08/31/2017 6:15 Submandibular space Re sults for this MICROSCOPIC REFLEX TO PM EXERCISE PHYSIOLOGY PROFESSOR infection proced ure are in CULTURE the results section. CT SOFT TISSUE NECK W STAT 08/31/2017 5:11 Res ults for this CONTRAST PM EXERCISE PHYSIOLOGY PROFESSOR procedure are i n the results section. CBC WITH PLATELETS & STAT 08/31/2017 3:56 Resu lts for this DIFFERENTIAL PM EXERCISE PHYSIOLOGY PROFESSOR procedure are i n the results section. COMPREHENSIVE METABOLIC STAT 08/31/2017 3:56 R esults for this PANEL PM EXERCISE PHYSIOLOGY PROFESSOR procedure are i n the results section. documented in this encounter Results (ABNORMAL) CBC with platelets (09/01/2017 7:01 AM EXERCISE PHYSIOLOGY PROFESSOR) [facility] Method Time Signature WBC 19.9 (H) 4.0 - 11.0 09/01/2017 [facility] 10e9/L 7:32 AM EXERCISE PHYSIOLOGY PROFESSOR [facility] RBC Count 4.80 3.8 - 5.2 09/01/2017 [facility] 10e12/L 7:32 AM [facility] Hemoglobin 14.9 11.7 - 09/01/2017 [facility] 15.7 g/dL 7:32 AM [facility] Hematocrit 43.1 35.0 - 09/01/2017 [facility] 47.0 % 7:32 AM [facility] MCV 90 78 - 100 09/01/2017 [facility] fl 7:32 AM [facility] MCH 31.0 26.5 - 09/01/2017 [facility] 33.0 pg 7:32 AM [facility] MCHC 34.6 31.5 - 09/01/2017 [facility] 36.5 g/dL 7:32 AM [facility] RDW 12.6 10.0 - 09/01/2017 [facility] 15.0 % 7:32 AM [facility] Platelet Count 243 150 - 450 09/01/2017 [facility] 10e9/L 7:32 AM [facility] Specimen Anatomical Collection Method Collection Time Receive d Time (Source) Location / / Volume Laterality Blood specimen 09/01/2017 7:01 AM 017 7:04 (specimen) EXERCISE PHYSIOLOGY PROFESSOR AM EXERCISE PHYSIOLOGY PROFESSOR Carlos Du MD LAB - BLOOD ORDERABLES Performing Organization Address City/State/ZIP Code Phon e Number [facility] [address] [place], [place] [id number] [place] [address] XR Orthopantomogram Teeth Full Mouth (08/31/2017 6:42 PM EXERCISE PHYSIOLOGY PROFESSOR) Anatomical Region Laterality Modality Head Computed Radiography Specimen (Source) Anatomical Location Collection Method / Collectio n Time Received Time / Laterality Volume Impressions 08/31/2017 6:55 PM EXERCISE PHYSIOLOGY PROFESSOR Impression: No appreciable periapical lucencies. I have personally reviewed the examinati on and initial interpretation and I agree with the findings. RENO HONEYCUTT MD Narrative 08/31/2017 6:55 PM EXERCISE PHYSIOLOGY PROFESSOR Exam: XR ORTHOPANTOMOGRAM TEETH FULL MOUTH, 08/31/2017 6:42 PM Indication: nathanael's angina, presumed od ontogenic source; Comparison: None Findings: Orthopantogram, PA, oblique and lateral views of the mandible. Numerous dental fillings noted. Poor vis ualization of the incisors due to motion artifact. No periapical lucenc ies noted. No evidence of mandibular fracture. Procedure Note Reno Honeycutt MD - 08/31/2017F ormatting of this note might be different from the original. Exam: XR ORTHOPANTOMOGRAM TEETH FULL JUANCHO TH, 08/31/2017 6:42 PM Indication: nathanael's angina, presumed od ontogenic source; Comparison: None Findings: Orthopantogram, PA, oblique and lateral views of the mandible. Numerous dental fillings noted. Poor vis ualization of the incisors due to motion artifact. No periapical lucenc ies noted. No evidence of mandibular fracture. Impression: No appreciable periapical hallie cencies. I have personally reviewed the examinati on and initial interpretation and I agree with the findings. RENO HONEYCUTT MD John Paul Singh MD IMG DIAGNOSTIC IMAGING ORDER RAFAT (ABNORMAL) UA with Microscopic reflex to Culture (08/31/2017 6:15 PM EXERCISE PHYSIOLOGY PROFESSOR) [facility] gist Method Time Signature Color Urine Yellow 08/31/2017 [facility] 6:58 PM [facility] Appearance Urine Clear 08/31/2017 [facility] F 6:58 PM [facility] Glucose Urine Negative NEG^Negat 08/31/2017 [facility] [place] mg/dL 6:58 PM [facility] Bilirubin Urine Negative NEG^Negat 08/31/2017 [facility] [place] 6:58 PM [facility] Ketones Urine 10 (A) NEG^Negat 08/31/2017 [facility] [place] mg/dL 6:58 PM [facility] Specific [place] 1.038 (H) 1.003 - 08/31/2017 [facility] O F Urine 1.035 6:58 PM [facility] Blood Urine Small (A) NEG^Negat 08/31/2017 [facility] [place] 6:58 PM [facility] pH Urine 6.5 5.0 - 7.0 08/31/2017 [facility] pH 6:58 PM [facility] Protein Albumin Negative NEG^Negat 08/31/2017 [facility] Urine ariel mg/dL 6:58 PM [facility] Urobilinogen Normal 0.0 - 2.0 08/31/2017 [facility] mg/dL mg/dL 6:58 PM [facility] Nitrite Urine Negative NEG^Negat 08/31/2017 [facility] [place] 6:58 PM [facility] Leukocyte Negative NEG^Negat 08/31/2017 [facility] Esterase Urine ariel 6:58 PM [facility] Source Midstream 08/31/2017 [facility] Urine 6:33 PM [facility] WBC Urine <1 0 - 2 08/31/2017 [facility] /HPF 6:58 PM [facility] RBC Urine 1 0 - 2 08/31/2017 [facility] /HPF 6:58 PM [facility] Bacteria Urine Few (A) NEG^Negat 08/31/2017 [facility] ariel /HPF 6:58 PM [facility] Squamous 7 (H) 0 - 1 08/31/2017 [facility] Epithelial /HPF /HPF 6:[address] [facility] Mucous Urine Present (A) NEG^Negat 08/31/2017 [facility] [place] /LPF 6:58 PM [facility] Specimen (Source) Anatomical Collection Method Collection Time Re ceived Time Location / / Volume Laterality Examination of URINE SPECIMEN 08/31/2017 6:15 08/31/20 17 6:33 midstream urine OBTAINED BY CLEAN PM EXERCISE PHYSIOLOGY PROFESSOR PM EXERCISE PHYSIOLOGY PROFESSOR specimen CATCH PROCEDURE / (procedure) Unknown Marlon Medley MD LAB - URINE ORDERABLES Performing Organization Address City/State/ZIP Code Phon e Number [facility] [address], [place] [id number] [place] [address] (ABNORMAL) Soft tissue neck CT w contrast (08/31/2017 5:11 PM EXERCISE PHYSIOLOGY PROFESSOR) [facility] gist Method Time Signature Radiologist Abscess RADIOLOGY flags (Urgent) RESULTS Anatomical Region Laterality Modality Neck, SUBRAD CT NEURO, SUBRAD CT NEURO, UMP CT NEURO, Computed Tomography RAD CT Specimen (Source) Anatomical Location Collection Method / Collectio n Time Received Time / Laterality Volume Impressions 08/31/2017 7:44 PM EXERCISE PHYSIOLOGY PROFESSOR Impression: Left sublingual space abscess and overly ing submandibular cellulitis, most likely odontogenic. [Urgent Result: Abscess] Finding was identified on 08/31/2017 5:[address] Singh was contacted by Dr. Krause at 08/31/2017 5:21 PM and verbalized understanding of the urgent f inding. I have personally reviewed the examinati on and initial interpretation and I agree with the findings. NICOLE KOHLER MD Narrative 08/31/2017 7:[address]OLOGY PROFESSOR [address] SOFT TISSUE NECK W CONTRAST 08/31/2017 5:11 PM History: ??Submandibular swelling presum ed from tooth abscess,; ?? Comparison: ??None available Technique: Following intravenous adminis tration of nonionic iodinated contrast medium, thin section helical CT images were obtained from the skull base down to the level of the aort ic arch. ??Axial, coronal and sagittal reformations were performed wit h 2-3 mm slice thickness reconstruction. Images were reviewed in soft tissue, lung and bone windows. Contrast: iopamidol (ISOVUE-370) solutio n 100 mL Findings: 4.9 x 2.0 cm thin crescentic rim-enhanci ng fluid collection in the left aspect of the sublingual space with slight extension of enhancing inflammatory soft tissue across midline. Mild subcutaneous fat stranding and platysmal thickening in th e overlying submandibular subcutaneous tissues. Fluid collection a nd enhancing soft tissue inflammation abut the medial aspect of t he left second mandibular molar, which demonstrates minimal periap ical lucency without discrete cortical bony defect. There is reactive thickening and enhancement of the left sublingual gland without ductal dilatation, stone or mass. Reactive enlarged left level 1, 2 and 3 cervical lymph nodes. No significant effacement of the aerodigest ariel tract. 7 mm hypodense right thyroid lobe nodule , which does not require further follow up. Patent major cervical vasculature. Paranasal sinuses and mastoid air cells are clear. Orbits and visualized intracranial contents are unremarkable. Lung apices are clear. Procedure Note Nicole Kohler MD - 08/31/2017F ormatting of this note might be different from the original. CT SOFT TISSUE NECK W CONTRAST 7 5:11 PM History: Submandibular swelling presumed from tooth abscess,; Comparison: None available Technique: Following intravenous adminis tration of nonionic iodinated contrast medium, thin section helical CT images were obtained from the skull base down to the level of the aort ic arch. Axial, coronal and sagittal reformations were performed wit h 2-3 mm slice thickness reconstruction. Images were reviewed in soft tissue, lung and bone windows. Contrast: iopamidol (ISOVUE-370) solutio n 100 mL Findings: 4.9 x 2.0 cm thin crescentic rim-enhanci ng fluid collection in the left aspect of the sublingual space with slight extension of enhancing inflammatory soft tissue across midline. Mild subcutaneous fat stranding and platysmal thickening in th e overlying submandibular subcutaneous tissues. Fluid collection a nd enhancing soft tissue inflammation abut the medial aspect of t he left second mandibular molar, which demonstrates minimal periap ical lucency without discrete cortical bony defect. There is reactive thickening and enhancement of the left sublingual gland without ductal dilatation, stone or mass. Reactive enlarged left level 1, 2 and 3 cervical lymph nodes. No significant effacement of the aerodigest ariel tract. 7 mm hypodense right thyroid lobe nodule , which does not require further follow up. Patent major cervical vasculature. Paranasal sinuses and mastoid air cells are clear. Orbits and visualized intracranial contents are unremarkable. Lung apices are clear. Impression: Left sublingual space abscess and overly ing submandibular cellulitis, most likely odontogenic. [Urgent Result: Abscess] Finding was identified on 08/31/2017 5:[address] Singh was contacted by Dr. Krause at 08/31/2017 5:21 PM and verbalized understanding of the urgent f inding. I have personally reviewed the examinati on and initial interpretation and I agree with the findings. NICOLE KOHLER MD John Paul Singh MD IMG CT ORDERABLES (ABNORMAL) Comprehensive metabolic panel (08/31/2017 3:56 PM EXERCISE PHYSIOLOGY PROFESSOR) P athologist Signature Sodium 138 133 - 144 08/31/2017 [facility] mmol/L 4:42 PM [facility] Potassium 4.0 3.4 - 5.3 08/31/2017 [facility] mmol/L 4:42 PM [facility] Chloride 105 94 - 109 08/31/2017 [facility] mmol/L 4:42 PM [facility] Carbon Dioxide 25 20 - 32 08/31/2017 [facility] mmol/L 4:42 PM [facility] Anion Gap 8 3 - 14 08/31/2017 [facility] mmol/L 4:42 PM [facility] Glucose 97 70 - 99 08/31/2017 [facility] mg/dL 4:42 PM [facility] Urea Nitrogen 13 7 - 30 08/31/2017 [facility] mg/dL 4:42 PM [facility] Creatinine 0.66 0.52 - 08/31/2017 [facility] 1.04 mg/dL 4:42 PM [facility] GFR Estimate >90 >60 08/31/2017 [facility] mL/min/1.7 4:[address] Comment: Non GFR Calc GFR Estimate If >90 >60 mL/min/1.7m2 08/31/2017 4:42 P [facility] Black [facility] Comment: GFR Calc Calcium 8.9 8.5 - 10.1 08/31/2017 4:42 [facility] mg/dL [facility] Bilirubin Total 0.3 0.2 - 1.3 08/31/2017 4:42 PM [facility] [place] mg/dL [facility] Albumin 3.3 (L) 3.4 - 5.0 g/dL 08/31/2017 4:[address] [facility] Protein Total 7.3 6.8 - 8.8 g/dL 08/31/2017 4:[address] [facility] Alkaline Phosphatase 84 40 - 150 U/L 08/31/2017 4:[address] [facility] ALT 16 0 - 50 U/L 08/31/2017 4:[address] [facility] AST 7 0 - 45 U/L 08/31/2017 4:[address] [facility] Specimen Anatomical Collection Method Collection Time Receive d Time (Source) Location / / Volume Laterality Blood specimen 08/31/2017 3:56 PM 017 4:16 (specimen) EXERCISE PHYSIOLOGY PROFESSOR PM EXERCISE PHYSIOLOGY PROFESSOR John Paul Singh MD LAB - BLOOD ORDERABLES Performing Organization Address City/State/ZIP Code Phon e Number [facility] [address] [place] [address] [facility] (ABNORMAL) CBC with platelets differential (08/31/2017 3:56 PM EXERCISE PHYSIOLOGY PROFESSOR) [facility] gist Method Time Signature WBC 15.9 (H) 4.0 - 08/31/2017 [facility] 11.0 4:21 PM [place] [id number] [facility] RBC Count 5.14 3.8 - 5.2 08/31/2017 [facility] 10e12/L 4:21 PM [facility] Hemoglobin 15.9 (H) 11.7 - 08/31/2017 [facility] 15.7 g/dL 4:21 PM [facility] Hematocrit 46.7 35.0 - 08/31/2017 [facility] 47.0 % 4:21 PM [facility] MCV 91 78 - 100 08/31/2017 [facility] fl 4:21 PM [facility] MCH 30.9 26.5 - 08/31/2017 [facility] 33.0 pg 4:21 PM [facility] MCHC 34.0 31.5 - 08/31/2017 [facility] 36.5 g/dL 4:21 PM [facility] RDW 12.6 10.0 - 08/31/2017 [facility] 15.0 % 4:21 PM [facility] Platelet Count 228 150 - 450 08/31/2017 [facility] 10e9/L 4:21 PM [facility] Diff Method Automated 08/31/2017 [facility] Method 4:21 PM [facility] % Neutrophils 82.3 % 08/31/2017 [facility] 4:21 PM [facility] % Lymphocytes 12.2 % 08/31/2017 [facility] 4:21 PM [facility] % Monocytes 4.8 % 08/31/2017 [facility] 4:21 PM [facility] % Eosinophils 0.3 % 08/31/2017 [facility] 4:21 PM [facility] % Basophils 0.1 % 08/31/2017 [facility] 4:21 PM [facility] % Immature 0.3 % 08/31/2017 [facility] Granulocytes 4:21 PM [facility] Nucleated RBCs 0 0 /100 08/31/2017 [facility] 4:21 PM [facility] Absolute 13.1 (H) 1.6 - 8.3 08/31/2017 [facility] Neutrophil 10e9/L 4:21 PM [facility] Absolute 1.9 0.8 - 5.3 08/31/2017 [facility] Lymphocytes 10e9/L 4:21 PM [facility] Absolute 0.8 0.0 - 1.3 08/31/2017 [facility] Monocytes 10e9/L 4:21 PM [facility] Absolute 0.1 0.0 - 0.7 08/31/2017 [facility] Eosinophils 10e9/L 4:21 PM [facility] Absolute 0.0 0.0 - 0.2 08/31/2017 [facility] Basophils 10e9/L 4:21 PM [facility] Abs Immature 0.1 0 - 0.4 08/31/2017 [facility] Granulocytes 10e9/L 4:21 PM [facility] Absolute 0.0 08/31/2017 [facility] Nucleated RBC 4:21 PM [facility] Specimen Anatomical Collection Method Collection Time Receive d Time (Source) Location / / Volume Laterality Blood specimen 08/31/2017 3:56 PM 017 4:16 (specimen) EXERCISE PHYSIOLOGY PROFESSOR PM EXERCISE PHYSIOLOGY PROFESSOR John Paul Singh MD LAB - BLOOD ORDERABLES Performing Organization Address City/State/ZIP Code Phon e Number [facility] [address] documented in this encounter Visit Diagnoses Not on filedocumented in this encounter Administered Medications Inactive Administered Medications - up to 3 most recent administrations Medication Order MAR Action Action Date Dose Rate Site BUPivacaine (MARCAINE) Given 08/31/2017 9:19 PM 10 mLs Operative injection 0.5% PF EXERCISE PHYSIOLOGY PROFESSOR Site/Surgical S ite PRN, Starting on Wed08/31/17 at 2119, Intra-procedure chlorhexidine (PERIDEX) 0.12 % solution 10 mL Given 08/31/2017 7:37 PM EXERCISE PHYSIOLOGY PROFESSOR 15 mLs 10 mL, Swish & Spit, ONCE, On Wed08/31/17 at 1930, For 1 dose, Swish for 1 minute pre-op. call or contact centre team leader to surgery, Pre-procedure chlorhexidine (PERIDEX) 0.12 % solution Given 08/31/2017 9:18 PM EXERCISE PHYSIOLOGY PROFESSOR 15 mLs PRN, Starting on Wed08/31/17 at 2118, Intra-procedure clindamycin (CLEOCIN) infusion 600 New Bag 08/31/2017 5:38 PM EXERCISE PHYSIOLOGY PROFESSOR 600 mg 100 mL/hr mg STAT, 600 mg, Intravenous, EVERY 8 HOURS, First dose on Wed08/31/17 at 1618, Indications: Skin and Soft Tissue Infection clindamycin (CLEOCIN) infusion 900 New Bag 09/01/2017 8:49 AM EXERCISE PHYSIOLOGY PROFESSOR 900 mg 50 mL/hr mg STAT, 900 mg, Intravenous, EVERY 8 HOURS, First dose (after last modification) on Wed09/01/17 at 0100, Indications: Skin and Soft Tissue Infection New Bag 09/01/2017 2:21 AM EXERCISE PHYSIOLOGY PROFESSOR 900 mg 50 mL/hr HYDROcodone-acetaminophen (LORTAB) 7.5-325 Given 09/01/2017 6:30 AM EXERCISE PHYSIOLOGY PROFESSOR 15 mLs MG/15ML solution 15 mL 15 mL, Oral, EVERY 4 HOURS PRN, moderate to severe pain, Starting on Wed09/01/17 at 0156, Maximum acetaminophen dose from all sources= 75 mg/kg/day not to exceed 4 grams. Given 09/01/2017 2:20 AM EXERCISE PHYSIOLOGY PROFESSOR 15 mLs HYDROmorphone (PF) (DILAUDID) injection Given 08/31/2017 9:37 PM EXERCISE PHYSIOLOGY PROFESSOR 0.5 mg 0.3-0.5 mg 0.3-0.5 mg, Intravenous, EVERY 5 MIN PRN, other, acute pain.?May administer if Respiratory Rate is greater than 10, Starting on Wed08/31/17 at 2112, If fentanyl is also ordered, use HYDROmorphone if pain control insufficient with fentanyl or a longer acting agent is needed. Max cumulative dose = 2 mg Give IV Push undiluted up to 4 mg. Each 2mg over 2-5 minutes., PACU Given 08/31/2017 9:22 PM EXERCISE PHYSIOLOGY PROFESSOR 0.5 mg HYDROmorphone (PF) (DILAUDID) injection 0.5 Given 08/31/2017 6:37 PM EXERCISE PHYSIOLOGY PROFESSOR 0.5 mg mg 0.5 mg, Intravenous, EVERY 15 MIN PRN, moderate to severe pain, Starting on Wed08/31/17 at 1802, For 3 doses, Give IV Push undiluted up to 4 mg. Each 2mg over 2-5 minutes. iopamidol (ISOVUE-370) solution 100 mL Given 08/31/2017 4:50 PM EXERCISE PHYSIOLOGY PROFESSOR 100 mLs 100 mL, Intravenous, ONCE, On Wed08/31/17 at 1650, For 1 dose lidocaine (LMX4) kit Topical, EVERY 1 HOUR PRN, pain, with VA D insertion or accessing implanted port., Starting on Wed08/31/17 at 1805, Do NOT give if patient has a history of allergy to any local anesthetic or any tamra product. Apply 30 minutes prior to VAD insertion or port access. MAX Dose: 2.5 g (?? of 5 g t ube). lidocaine 1 % 1 mL 1 mL, Other, EVERY 1 HOUR PRN, mild pain with VAD insertion or accessing implanted port, Starting on Wed08/31/17 at 1805, Do NOT give if patient has a history of allergy to any local anesthetic or any tamra product. MAX dose 1 mL subcutaneous OR intradermal in divided doses. naloxone (NARCAN) injection 0.1-0.4 mg 0.1-0.4 mg, Intravenous, EVERY 2 MIN PRN , opioid reversal, Starting on Wed08/31/17 at 1805, For respiratory rate LESS than or EQUAL to 8. Partial reversal dose: 0.1 mg titrated q 2 minutes for Analgesia Si de Effects Monitoring Sedation Level of 3 (frequently drowsy, arousable, drifts to sleep during conversation).Full reversal dose: 0.4 mg bolus for Analgesia Side Effects Monitori ng Sedation Level of 4 (somnolent, minimal or no response to st imulation). Give IV Push undiluted up to 2mg. Give each 0.4mg over 15 seconds in emergency situ ations. For non-emergent situations further dilute in 9mL of NS to facilitate t itration of response. ondansetron (ZOFRAN) injection 4 mg 4 mg, Intravenous, EVERY 6 HOURS PRN, nausea, vomiting , Administer over 2-5 Minutes, Starting on Wed08/31/17 at 180 5, This is Step 1 of nausea and vomiting management. If nausea not resolved in 15 minutes, go t o Step 2 prochlorperazine (COMPAZINE). Irritant. For ordered doses up to 4 mg, give IV Push undiluted over 2-5 minutes. ondansetron (ZOFRAN-ODT) ODT tab 4 mg 4 mg, Oral, EVERY 6 HOURS PRN, nausea, v omiting, Starting on Wed08/31/17 at 1805, This is Step 1 of nausea and vomiting management. If n ausea not resolved in 15 minutes, go to Step 2 prochlorperazine (COMPAZINE). Do not push through foil backing. Peel back foil and gently remove. Place on to ngue immediately. Administration with liquid unnecessary sodium chloride (PF) 0.9% PF flush 3 mL 3 mL, Intracatheter, EVERY 1 HOUR PRN, line flush, Sta rting on Wed08/31/17 at 1805, for peripheral IV flush post IV meds sodium chloride (PF) 0.9% PF flush 3 mL Given 09/01/2017 2:26 AM EXERCISE PHYSIOLOGY PROFESSOR 3 mLs 3 mL, Intracatheter, EVERY 8 HOURS, First dose on Wed08/31/17 at 1811, And Q1H PRN, to lock peripheral IV dormant line. sodium chloride 0.9 % bag 500mL for CT scan Given 08/31/2017 4:50 PM EXERCISE PHYSIOLOGY PROFESSOR 60 mLs flush use Intravenous, 60 mL, EVERY 1 HOUR PRN, line flush, Starting on Wed08/31/17 at 1649, For 12 hours, This entry is for use by Radiology to intermittently used as a flush in patients receiving a CT scan. sodium chloride 0.9% (bottle) irrigation Given 08/31/2017 9:18 PM EXERCISE PHYSIOLOGY PROFESSOR 2 mLs PRN, Starting on Wed08/31/17 at 2118, Intra-procedure documented in this encounter Active and Recently Administered Medications Times are shown in EXERCISE PHYSIOLOGY PROFESSOR. Scheduled Medication Order 08/30/2017 08/31/2017 09/01/2017 chlorhexidine (PERIDEX) 0.12 % solution 10 mL (COMPLETED) 1936 (Given - Provider: Aurora Dumont, MIGNON) 10 mL, Swish & Spit, ONCE, Wed08/31/17 at 1930, For 1 dose, Swish for 1 minute pre-op. call or contact centre team leader to surgery, Pre-procedure clindamycin (CLEOCIN) infusion 600 mg (CANCELED) 1737 (New Bag - Provider: Julienne Winters RN)183 (Stopped - Provider: Breanne Herman RN) 600 mg, Intravenous, EVERY 8 HOURS, Firs t dose on Wed08/31/17 at 1618, Indications: Skin and Soft Tissue Infection clindamycin (CLEOCIN) infusion 900 mg 19 13 (Auto Hold - Provider: Orders Generic Provider - Reason: Transfer to a procedural area)2236 (Unhold - Provider: Orders Generic Provider) 022 (New Bag - Provider: Paloma Oreilly, MIGNON)0339 (Stopped - Provider: Paloma Oreilly RN)0849 (New Bag - Provider: Lashell Villegas RN) 900 mg, Intravenous, EVERY 8 HOURS, Firs t dose on Wed09/01/17 at 0100, Indications: Skin and Soft Tissue Infection iopamidol (ISOVUE-370) solution 100 mL (COMPLETED) 1649 (Given - Provider: Prerna Espino ARRIsai) 100 mL, Intravenous, ONCE, Wed08/31/17 at 1650, For 1 dose sodium chloride (PF) 0.9% PF flush 3 mL 1810 (Canceled Entry - Provider: Orders Generic Provider - Comment: Automatically canceled at discontinue of medication order)1912 (Auto Hold - Provider: Orders Generic Provider - Reason: Transfer to a procedural area) 225 (Given - Provider: Paloma george RN)0937 (Not Given - Provider: Lashell Villegas RN - Reason: IV Infusing) 3 mL, Intracatheter, EVERY 8 HOURS, Firs t dose on Wed08/31/17 at 1811, And Q1H PRN, to lock peripheral IV dormant line. 2235 (Unhold - Provider: Orders Generic Provider) Continuous Medication Order 08/30/2017 08/31/2017 09/01/2017 PRE OP antibiotics NOT needed for this surgical procedure. ( CANCELED) 1950 (Given - Provider: Jamee Hunt APRN PIZZA HUT ASSISTANT) CONTINUOUS, Starting Wed08/31/17 at 193 0, Until Wed08/31/17 at 2059, PRE OP antibiotics NOT needed for this surgical procedure., Pre-procedure PRN Medication Order 08/30/2017 08/31/2017 09/01/2017 BUPivacaine (MARCAINE) injection 0.5% PF (CANCELED) 2118 (Given - Provider: Carlos Carrasco MD) PRN, Starting Wed08/31/17 at 2118, Intra-procedure chlorhexidine (PERIDEX) 0.12 % solution (CANCELED) 2117 (Given - Provider: Carlos Du MD - Comment: brush teeth) PRN, Starting Wed08/31/17 at 2118, Intra-procedure HYDROcodone-acetaminophen (LORTAB) 7.5-325 MG/15ML solution 15 m L 0220 (Given - Provider: Paloma Oreilly, MIGNON)0630 (Given - Provider: Melody Zaman RN) 15 mL, Oral, EVERY 4 HOURS PRN, moderate to severe pain, Starting Wed09/01/17 at 0156, Maximum acetaminophen dose from all sources= 75 mg/kg/day not to exceed 4 grams. HYDROmorphone (PF) (DILAUDID) injection 0.3-0.5 mg (CANCELED ) 2121 (Given - Provider: Gayla Phelps, MIGNON)2136 (Given - Provider: Gayla Phelps, MIGNON) 0.3-0.5 mg, Intravenous, EVERY 5 MIN PRN , Starting Wed08/31/17 at 2112, Until Wed08/31/17 at 2236, other, acute pain.?May administer if Respiratory Rate is greater than 10, PACU, If fentanyl is als o ordered, use HYDROmorphone if pain con trol insufficient with fentanyl or a longer acting agent is needed. Max cumulative dose = 2 mg Give IV Push undiluted up to 4 mg. Each 2mg over 2-5 minutes. HYDROmorphone (PF) (DILAUDID) injection 0.5 mg (CANCELED) 1836 (Given - Provider: Breanne Herman RN)1912 (Auto Hold - Provider: Orders Generic Provider - Reason: Transfer to a procedural area)2235 (Unhold - Provider: Orders Generic Provider) 0.5 mg, Intravenous, EVERY 15 MIN PRN, 3 doses, Starting Wed08/31/17 at 1802, Until Wed09/01/17 at 0158, moderate to severe pain, Give IV Push undiluted up to 4 mg. Each 2mg over 2-5 minutes. lidocaine (LMX4) kit 1912 (Auto Hold - P rovider: Orders Generic Provider - Reason: Transfer to a procedural area)2235 (Unhold - Provider: Orders Generic Provider) Topical, EVERY 1 HOUR PRN, pain, with VA D insertion or accessing implanted port., Starting Wed08/31/17 at 1805, Do NOT give if patient has a history of allergy to any local anesthetic or any tamra pr oduct. Apply 30 minutes prior to VAD ins ertion or port access. MAX Dose: 2.5 g (?? of 5 g tube). lidocaine 1 % 1 mL 1912 (Auto Hold - Pr ovider: Orders Generic Provider - Reason: Transfer to a procedural area)2235 (Unhold - Provider: Orders Generic Provider) 1 mL, Other, EVERY 1 HOUR PRN, mild pain with VAD insertion or accessing implanted port, Starting Wed08/31/17 at 1805, Do NOT give if patient has a history of allergy to any local anesthetic or any ca ine product. MAX dose 1 mL subcutaneous OR intradermal in divid ed doses. naloxone (NARCAN) injection 0.1-0.4 mg 1 (Auto Hold - Provider: Orders Generic Provider - Reason: Transfer to a procedural area)2235 (Unhold - Provider: Orders Generic Provider) 0.1-0.4 mg, Intravenous, EVERY 2 MIN PRN , opioid reversal, Starting Wed08/31/17 at 1805, For respiratory rate LESS than or EQUAL to 8. Partial reversal dose: 0.1 mg titrated q 2 minutes for Analgesia S rod Effects Monitoring Sedation Level of 3 (frequently drowsy, arousable, drifts to sleep during conversation).Full reversal dose: 0.4 mg bolus for Analgesia Side Effects Monitoring Sedation Level of 4 (somnolent, minimal or no response to st imulation). Give IV Push undiluted up to 2mg. Give each 0.4mg over 15 seconds in emergency situations. For non-emergent situations further dilute in 9mL of NS to facilitate titration of response. ondansetron (ZOFRAN) injection 4 mg(Linked Group 1) 1912 (Auto Hold - Provider: Orders Generic Provider - Reason: Transfer to a procedural area)2235 (Unhold - Provider: Orders Generic Provider) 4 mg, Intravenous, EVERY 6 HOURS PRN, na usea, vomiting, Administer over 2-5 Minutes, Starting Wed08/31/17 at 1805, This is Step 1 of nausea and vomiting management. If nausea not resolved in 15 minutes , go to Step 2 prochlorperazine (COMPAZI NE). Irritant. For ordered doses up to 4 mg, give IV Push undiluted over 2-5 minutes. ondansetron (ZOFRAN-ODT) ODT tab 4 mg(Linked Group 1) 1912 (Auto Hold - Provider: Orders Generic Provider - Reason: Transfer to a procedural area)2235 (Unhold - Provider: Orders Generic Provider) 4 mg, Oral, EVERY 6 HOURS PRN, nausea, v omiting, Starting Wed08/31/17 at 1805, This is Step 1 of nausea and vomiting management. If nausea not resolved in 15 minutes, go to Step 2 prochlorperazine (COM PAZINE). Do not push through foil backin g. Peel back foil and gently remove. Place on tongue immediately. Administration with liquid unnecessary sodium chloride (PF) 0.9% PF flush 3 mL 1912 (Auto Hold - Provider: Orders Generic Provider - Reason: Transfer to a procedural area)2235 (Unhold - Provider: Orders Generic Provider) 3 mL, Intracatheter, EVERY 1 HOUR PRN, l ine flush, Starting Wed08/31/17 at 1805, for peripheral IV flush post IV meds sodium chloride 0.9 % bag 500mL for CT scan flush use 1650 (Given - Provider: CELSA Aggarwal)1912 (Auto Hold - Provider: Orders Generic Provider - Reason: Transfer to a procedural area)2235 (Unhold - Provider: Orders Generic Provider) Intravenous, 60 mL, EVERY 1 HOUR PRN, li ne flush, Starting Wed08/31/17 at 1649, For 12 hours, This entry is for use by Radiology to intermittently used as a flush in patients receiving a CT scan. sodium chloride 0.9% (bottle) irrigation (CANCELED) 2117 (Given - Provider: Oswaldo Noble DDS) PRN, Starting Wed08/31/17 at 2118, Intra-procedure Linked Groups Order Group 1: ondansetron (ZOFRAN-ODT) ODT tab 4 mgJump to med 4 mg, Oral, EVERY 6 HOURS PRN, nausea, v omiting, Starting Wed08/31/17 at 1805
This is Step 1 of nausea and vomiting management. If nausea not resolved in 15 minutes, go to S tep 2 prochlorperazine (COMPAZINE). Do n ot push through foil backing. Peel back foil and gently remove. Place on tongue immediately. Administration with liquid unnecessary
Or ondansetron (ZOFRAN) injection 4 mgJump to med 4 mg, Intravenous, EVERY 6 HOURS PRN, na usea, vomiting, Administer over 2-5 Minutes, Starting Wed08/31/17 at 1805
This is Step 1 of nausea and vomiting management. If nausea not resolved in 15 minutes, go to Step 2 prochlorperazine (COMPAZINE). Irritant. For ordered doses up to 4 mg, give IV Push undiluted over 2-5 minutes.
documented in this encounter Care Teams Machine Burrer Relationship Specialty Start Date End Date No Ref-Primary, Physician PCP - General 08/31/17 documented as of this encounter
== END 2022-05-12 09:43 | disposition home or self-care (01) ==
PROVIDERS: PCP Family Medicine; Visit Provider Family Medicine
DX: Z00.00 Encounter for general adult medical examination without abnormal findings (principal); I10 Essential (primary) hypertension; E11.9 Type 2 diabetes mellitus without complications; E78.5 Hyperlipidemia, unspecified; R35.1 Nocturia; N32.81 Overactive bladder; M79.18 Myalgia, other site
CPT/HCPCS: 80048; 80061

== ENCOUNTER 2023-02-10 12:18 | Outpatient (CLI) | payer BC, SELFPAY ==
[2023-02-10 13:46] LABS: Chloride* 107 mmol/L (96-114); Sodium* 138 mmol/L (135-149)
[2023-02-10 13:49] LABS: Carbon Dioxide* 21 mmol/L (20-32); Creatinine* 0.5 mg/dL (0.5-1.5); Estimated Glomerular Filt Rate 111 ml/min; Potassium* 4.3 mmol/L (3.6-5.1)
[2023-02-10 13:50] LABS: Basophils Absolute Auto 0.03 K/uL (0.00-0.30); Basophils Percent Auto 0.3 % (0.0-3.0); Blood Urea Nitrogen* 19 mg/dL (7-30); Calcium* 9.1 mg/dL (8.4-10.6); Eosinophils Absolute Auto 0.35 K/uL (0.00-0.50); Eosinophils Percent Auto 3.4 % (0.0-7.0); Glucose* 220 mg/dL (60-115); Hematocrit 47.4 % (33.0-51.0); Hemoglobin* 16.2 gm/dL (12.0-16.0); Immature Granulocytes Abs Auto 0.02 K/uL (0.00-0.30); Immature Granulocytes Pct Auto 0.2 %; Lymphocytes Absolute Auto 2.82 K/uL (0.90-2.90); Lymphocytes Percent Auto 27.4 % (20-44); Mean Corpuscular HGB Conc 34 gm/dL (32-36); Mean Corpuscular Hemoglobin 30 pg (26-34); Mean Corpuscular Volume 87 fL (80-100); Monocytes Percent Auto 5.6 % (0.0-11.0); Neutrophils Percent Auto 63.1 % (42.0-72.0); Platelet Count* 250 K/uL (140-440); RDW Coefficient of Variation % 12.1 % (11.5-15.5); Red Blood Count 5.48 m/uL (4.00-5.20)
[2023-02-10 13:52] LABS: Slide Review Reflex No
[2023-02-10 14:03] LABS: Vitamin D 25 Hydroxy* < 13 ng/mL (30-80)
[2023-02-10 14:16] LABS: Thyroid Stimulating Hormone* 0.716 uIU/mL (0.270-4.20)
[2023-02-10 14:30] LABS: Erythrocyte SedimentationRate* 7 mm/hr (2-20)
[2023-02-10 14:36] LABS: Vitamin B12* 250 pg/mL (243-894)
== END 2023-02-10 12:19 | disposition home or self-care (01) ==
PROVIDERS: PCP Family Medicine; Visit Provider Family Medicine
DX: R53.83 Other fatigue (principal); I10 Essential (primary) hypertension; G62.9 Polyneuropathy, unspecified; E55.9 Vitamin D deficiency, unspecified; E78.2 Mixed hyperlipidemia; E11.9 Type 2 diabetes mellitus without complications
CPT/HCPCS: 80048; 82306; 82607; 84443; 85025; 85651

== ENCOUNTER 2023-08-24 10:57 | Outpatient (CLI) | payer BC, SELFPAY | END 2023-08-24 10:58 | disposition home or self-care (01) | PROVIDERS: PCP Family Medicine; Visit Provider Family Medicine | DX: E11.9 Type 2 diabetes mellitus without complications (principal); R53.83 Other fatigue; I10 Essential (primary) hypertension; E55.9 Vitamin D deficiency, unspecified | CPT/HCPCS: 80061; 82306 ==

== ENCOUNTER 2023-12-29 11:49 | Outpatient (CLI) | payer BC, SELFPAY | END 2023-12-29 11:50 | disposition home or self-care (01) | LOC: NFLDREF 12:04 | PROVIDERS: PCP Family Medicine; Referring Provider Family Medicine; Visit Provider Family Medicine | DX: N39.0 Urinary tract infection, site not specified (principal); E11.9 Type 2 diabetes mellitus without complications; M79.18 Myalgia, other site; E78.2 Mixed hyperlipidemia; R53.83 Other fatigue | CPT/HCPCS: 81001; 87086; 87186 ==

== ENCOUNTER 2024-12-25 12:47 | Outpatient (CLI) | payer BC, SELFPAY | END 2024-12-25 12:48 | disposition home or self-care (01) | PROVIDERS: PCP Family Medicine; Visit Provider Family Medicine | DX: I10 Essential (primary) hypertension (principal); E11.9 Type 2 diabetes mellitus without complications; E78.2 Mixed hyperlipidemia; E55.9 Vitamin D deficiency, unspecified; R53.83 Other fatigue; F41.1 Generalized anxiety disorder; G89.29 Other chronic pain | CPT/HCPCS: 80048; 80061; 82306 ==

== ENCOUNTER 2025-06-25 10:47 | Outpatient (CLI) | payer BC, SELFPAY | END 2025-06-25 10:48 | disposition home or self-care (01) | PROVIDERS: PCP Family Medicine; Visit Provider Family Medicine | DX: R53.83 Other fatigue (principal); I10 Essential (primary) hypertension; E55.9 Vitamin D deficiency, unspecified | CPT/HCPCS: 80048; 84443 ==